=== PATIENT | male | born 1970 | race Caucasian/White ===

== ENCOUNTER 2022-03-16 09:43 | Emergency (ER) | payer OTHER ==
[~2022-03-16] VITALS: Ht 180.3 cm; Wt 145.1 kg
[2022-03-16] MEDS ORDERED: DIAZEPAM 5 MG TAB PO STA (10:10)
[2022-03-16] MEDS ORDERED: HYDROCODONE/APAP 5MG-325MG TAB PO ONE (10:15)
[2022-03-16] MEDS ORDERED: KETOROLAC TROMETHAMINE 60 MG/2 ML VIAL IM ONE (10:15)
== END 2022-03-16 10:35 | disposition home or self-care (01) ==
LOC: ER 09:50
DX: M54.41 Lumbago with sciatica, right side (principal)
CPT/HCPCS: 99282; J1885